=== PATIENT | female | born 2005 | race Two or more races ===

== ENCOUNTER 2025-01-17 12:16 | Emergency (ER) | payer OTHER ==
[2025-01-17 12:24] VITALS: TEMP 98.9; BMI 18.0
[2025-01-17 13:23] LABS: ABSOLUTE IMMATURE GRANULOCYTES 0.02 x10^3/uL (0.0-0.031); BASOPHILS # 0.02 x10^3/uL (0.01-0.08); EOSINOPHIL % 0.1 % (0.7-5.8); EOSINOPHILS # 0.01 x10^3/uL (0.04-0.36); MCHC 32.8 g/dl (32.2-35.5); MEAN CELL VOLUME 90.5 fl (79.4-94.8); MEAN PLT VOLUME 8.4 fl (9.4-12.3); MONOCYTE # 0.73 x10^3/uL (0.24-0.86); MONOCYTE % 9.9 % (4.7-12.5); RDW 11.3 % (12.0-16.2)
[2025-01-17 13:28] LABS: EPI CELLS 5 /uL (0-25.1); HYALINE CASTS 0 /uL (0-3.1); URINE APPEARANCE CLEAR; URINE BACTERIA 4 /uL (0-1359); URINE BILIRUBIN NEGATIVE (NEGATIVE); URINE COLOR YELLOW; URINE GLUCOSE (UA) TRACE (NEGATIVE); URINE KETONE 1+ (NEGATIVE); URINE LEUK ESTERASE NEGATIVE (NEGATIVE); URINE NITRITE NEGATIVE (NEGATIVE); URINE PROTEIN 1+ (NEGATIVE); URINE RBC 13 /uL (0-23.9); URINE UROBILINOGEN 0.2 mg/dL (0.2-1.0); URINE WBC 2 /uL (0-25.8)
[2025-01-17 14:06] LABS: CO2 25.0 mmol/L (21-32); GLUCOSE,RANDOM 96.0 mg/dL (74-106)
[2025-01-17 14:08] LABS: SGPT/ALT 21.0 U/L (13-61)
[2025-01-17 14:09] LABS: CREATININE 0.8 mg/dL (0.55-1.3); SGOT/AST 19.0 U/L (15-37)
[2025-01-17 14:10] LABS: TOT PROT 7.6 g/dl (6.4-8.2)
[2025-01-17 14:12] LABS: ALK PHOS 92.0 U/L (45-117)
[2025-01-17 14:47] LABS: HCV DIAGNOSTIC IN-HOUSE W/RFLX NON-REACTIVE (NONREACTIVE); HIV INTERPRETATION NEGATIVE (NEGATIVE)
[2025-01-17 14:56] VITALS: BP 120/75; PULSE 62; RESP 16
== END 2025-01-17 14:56 | disposition home or self-care (01) ==
LOC: JER 12:16
DX: R10.13 Epigastric pain (principal); R10.31 Right lower quadrant pain
CPT/HCPCS: 36415; 76830-TC; 80053; 81003; 83690; 84703; 85025; 86803; 87086; 87389; 99284-25